=== PATIENT | male | born 1980 | race Asian ===

== ENCOUNTER 2024-12-31 07:50 | Emergency (ER) | payer OTHER ==
[~2024-12-31] VITALS: Ht 167.6 cm; Wt 95.5 kg
[2024-12-31 08:07] VITALS: TEMP 98.2
[2024-12-31] MEDS: DiphenhydrAMINE HCL 25 MG CAPSULE PO ONE (11:34)
[2024-12-31] MEDS: PredniSONE 20 MG TABLET PO ONE (11:34)
[2024-12-31] MEDS ORDERED: PRED-554 PO (12:03)
[2024-12-31] MEDS ORDERED: DIPH-1243 PO (12:03)
[2024-12-31 12:10] VITALS: BP 128/87; PULSE 59; RESP 18; O2SAT 100
== END 2024-12-31 12:15 | disposition home or self-care (01) ==
LOC: EMS 08:22
DX: L25.9 Unspecified contact dermatitis, unspecified cause (principal); E78.5 Hyperlipidemia, unspecified; F17.210 Nicotine dependence, cigarettes, uncomplicated
CPT/HCPCS: 99283; J7512

== ENCOUNTER 2025-05-11 08:58 | Emergency (ER) | payer OTHER ==
[~2025-05-11] VITALS: Ht 167.6 cm; Wt 111.9 kg
[~2025-05-11 08:58] MED LIST: DIPH-1243 PO; PRED-554 PO
[2025-05-11 08:59] VITALS: BP 119/91; PULSE 97; RESP 18; TEMP 98.1; O2SAT 99
[2025-05-11] MEDS: TRIAMCINOLONE 0.1% 15 GM CREAM TP ONE (10:23)
== END 2025-05-11 10:26 | disposition home or self-care (01) ==
LOC: EMS 08:58
DX: L23.2 Allergic contact dermatitis due to cosmetics (principal); F17.210 Nicotine dependence, cigarettes, uncomplicated; Z79.52 Long term (current) use of systemic steroids
CPT/HCPCS: 99283